=== PATIENT | female | born 1975 | race Two or more races ===

== ENCOUNTER 2025-02-11 16:19 | Emergency (ER) | payer OTHER ==
[~2025-02-11] VITALS: Ht 162.6 cm; Wt 71.7 kg
== END 2025-02-11 19:38 | disposition home or self-care (01) ==
LOC: ER 16:20
DX: T22.20XA Burn of second degree of shoulder and upper limb, except wrist and hand, unspecified site, initial encounter (principal); X10.2XXA Contact with fats and cooking oils, initial encounter; Y93.89 Activity, other specified; Y92.89 Other specified places as the place of occurrence of the external cause; Y99.9 Unspecified external cause status